=== PATIENT | male | born 1960 | race Caucasian/White ===

== ENCOUNTER 2022-02-20 04:21 | Outpatient (CLI) | payer MEDICAID, SELFPAY ==
[2022-02-20 09:39] LABS: Anion Gap 7.9 mmol/L (3-11); BUN 18 mg/dL (7-18); CO2 29.1 mmol/L (21.0-32.0); Calcium 8.5 mg/dL (8.5-10.1); Calculated LDL 173 mg/dL (<100); Chloride 106 mmol/L (98-107); Cholesterol 244 mg/dL (<200); Glucose 88 mg/dL (74-106); HDL Cholesterol 61 mg/dL (40-60); Potassium 4.2 mmol/L (3.5-5.1); Sodium 143 mmol/L (136-145); Triglyceride 52 mg/dL (<150)
== END 2022-02-20 04:22 | disposition home or self-care (01) ==
LOC: LBO 04:21
PROVIDERS: PCP Internal Medicine; Visit Provider Internal Medicine
DX: R73.01 Impaired fasting glucose (principal); E78.00 Pure hypercholesterolemia, unspecified
CPT/HCPCS: 36415; 80048; 80061

== ENCOUNTER 2022-09-16 02:58 | Outpatient (CLI) | payer MEDICAID, SELFPAY ==
[2022-09-16 07:33] LABS: Calculated LDL 185 mg/dL (<100); Cholesterol 243 mg/dL (<200); HDL Cholesterol 37 mg/dL (40-60); Triglyceride 109 mg/dL (<150)
== END 2022-09-16 02:59 | disposition home or self-care (01) ==
LOC: LBO 02:58
PROVIDERS: PCP Internal Medicine; Visit Provider Internal Medicine
DX: E78.00 Pure hypercholesterolemia, unspecified (principal)
CPT/HCPCS: 36415; 80061

== ENCOUNTER 2022-11-27 02:48 | Outpatient (CLI) | payer MEDICAID, SELFPAY ==
[2022-11-27 08:39] LABS: Anion Gap 7.4 mmol/L (3-11); BUN 20 mg/dL (7-18); CO2 31.6 mmol/L (21.0-32.0); CREATININE 1.1 mg/dL (0.70-1.30); Calcium 9.3 mg/dL (8.5-10.1); Calculated LDL 181 mg/dL (<100); Chloride 104 mmol/L (98-107); Cholesterol 252 mg/dL (<200); Glucose 101 mg/dL (74-106); HDL Cholesterol 54 mg/dL (40-60); Magnesium 1.9 mg/dL (1.8-2.4); Potassium 4.5 mmol/L (3.5-5.1); Sodium 143 mmol/L (136-145); Triglyceride 85 mg/dL (<150)
== END 2022-11-27 02:49 | disposition home or self-care (01) ==
PROVIDERS: Absent Provider Student in an Organized Health Care Education/Training Program; PCP Student in an Organized Health Care Education/Training Program; Referring Provider Student in an Organized Health Care Education/Training Program; Visit Provider Student in an Organized Health Care Education/Training Program
DX: E86.0 Dehydration (principal); Z91.89 Other specified personal risk factors, not elsewhere classified; N20.0 Calculus of kidney; Z13.220 Encounter for screening for lipoid disorders
CPT/HCPCS: 36415; 80048; 80061; 83735

== ENCOUNTER 2022-12-20 02:35 | Outpatient (CLI) | payer MEDICAID, SELFPAY ==
[2022-12-20 09:37] LABS: Hemoglobin A1C 5.5 % (<5.7)
[2022-12-20 09:58] LABS: TSH (W/Ref FT4) 2.46 uIU/mL (0.36-3.74)
[2022-12-22 11:04] LABS: Lipoprotein (a) 126 nmol/L (<75)
[2022-12-24 16:10] LABS: Apolipoprotein B, Serum 130 mg/dL; Beta VLDL Cholesterol Not Detected mg/dL (<15); Beta VLDL Triglycerides Not Detected mg/dL (<15); Cholesterol, Total, CDC 249 mg/dL; Chylomicron Cholesterol Not Detected; Chylomicron Triglycerides Not Detected; HDL Cholesterol, CDC 42 mg/dL (>=40); LDL Cholesterol 183 mg/dL; LDL Triglycerides 33 mg/dL (<=50); Lp(a) Cholesterol 17 mg/dL (<5); LpX Not detected; Triglycerides, CDC 60 mg/dL; VLDL Cholesterol 7 mg/dL (<30); VLDL Triglycerides 12 mg/dL (<120)
== END 2022-12-20 02:36 | disposition home or self-care (01) ==
LOC: LBO 02:35
PROVIDERS: PCP Student in an Organized Health Care Education/Training Program; Visit Provider Student in an Organized Health Care Education/Training Program
DX: R53.83 Other fatigue (principal); Z91.89 Other specified personal risk factors, not elsewhere classified; E78.00 Pure hypercholesterolemia, unspecified; E86.0 Dehydration; Z82.49 Family history of ischemic heart disease and other diseases of the circulatory system
CPT/HCPCS: 36415; 80061; 83695; 82172; 82664; 83036; 84443

== ENCOUNTER 2023-02-04 17:10 | Outpatient (REF) | payer MEDICAID, SELFPAY ==
--- NOTE | 2023-02-04 15:45 | PAPNONF_PTH ---
PATIENT: Kurtis Peace LOC: [facility] U#:[id number] AGE/SX: 62/M ROOM: RE02/04/[address]: Eldon Vuong MD : 1960 BED: DIS: 02/04/2023 SPEC #: [id number] RECD: 02/04/23 17:59 STATUS: CHEN REShruthi #: [id number] DANIEL: 02/04/23 15:[address]: Eldon Vuong DEPT: [facility] Cytology RECD BY: Laura Hoffmann ENTERED: 02/04/23 17:59 SP TYPE: JUAN C HILL DR: Moira Quispe DO Tissues: 1 - BODY FLUID CYTO-FINE NEEDLE ASPIRATE-[facility] Procedures: BODY FLUID CYTO-FINE NEEDLE ASPIRATE-[facility] Comments: [id number] (REFRIGERATED)
== END 2023-02-04 17:11 | disposition home or self-care (01) ==
LOC: LBN 17:10
PROVIDERS: PCP Student in an Organized Health Care Education/Training Program; Visit Provider Otolaryngology
DX: R22.1 Localized swelling, mass and lump, neck (principal); R89.6 Abnormal cytological findings in specimens from other organs, systems and tissues
CPT/HCPCS: 88104

== ENCOUNTER 2023-02-11 08:06 | Outpatient (REF) | payer MEDICAID, SELFPAY ==
--- NOTE | 2023-02-11 07:25 | LYM_PTH ---
PATIENT: Kurtis Peace LOC: [facility] U#:[id number] AGE/SX: 62/M ROOM: RE02/11/[address]: Eldon Vuong MD : 1960 BED: DIS: 02/11/2023 SPEC #: [id number] RECD: 02/11/23 12:39 STATUS: CHEN REQ #: [id number] DANIEL: 02/11/23 07:[address]: Eldon Vuong DEPT: Surgical Specimen RECD BY: Laura Hoffmann ENTERED: 02/11/23 12:41 SP TYPE: LYM OTHR DR: Moira Quispe DO Tissues: 1 - LYMPH NODE BIOPSY 2 - FLOW CYTOMETRY NODE/TISSUE Procedures: GROSS AND MICRO LEVEL 4 IMMUNOPEROXIDASE STAIN FLOW CYTOMETRY LYMPHOMA PNL Comments: [id number] (FLOW CYTOMETRY - [id number])
== END 2023-02-11 08:07 | disposition home or self-care (01) ==
LOC: LBN 08:06
PROVIDERS: PCP Student in an Organized Health Care Education/Training Program; Visit Provider Otolaryngology
DX: C91.10 Chronic lymphocytic leukemia of B-cell type not having achieved remission (principal); C83.01 Small cell B-cell lymphoma, lymph nodes of head, face, and neck
CPT/HCPCS: 88305; 88184; 88185; 88361

== ENCOUNTER 2023-07-30 13:11 | Outpatient (CLI) | payer MEDICAID, SELFPAY ==
[2023-07-30 12:55] LABS: Abs Immature Grans 0.06 10^3/uL (0.0-0.06); HCT 41.7 % (40.0-50.0); HGB 14.4 g/dL (13.5-17.5); MCH 29.9 pg (27.0-33.0); MCHC 34.5 % (32.0-36.0); MCV 87 fL (80-95); MPV 9.5 fL (8.0-11.0); RBC 4.81 10^6/uL (4.36-5.78); RDW 12.7 % (11.8-14.1); RDW-SD 40.3 fL; WBC 20.51 10^3/uL (4.4-10.8)
[2023-07-30 13:18] LABS: ALT 33 U/L (16-63); AST 31 U/L (15-37); Absolute Neutrophil Count 6.36 10^3/uL (1.2-6.7); Albumin 4.2 g/dL (3.4-5.0); Alkaline Phosphatase 65 U/L (46-116); Anion Gap 7.4 mmol/L (3-11); BUN 15 mg/dL (7-18); Bilirubin, Total 0.7 mg/dL (0.2-1.0); CO2 28.6 mmol/L (21.0-32.0); Calcium 9.5 mg/dL (8.5-10.1); Chloride 103 mmol/L (98-107); Glucose 111 mg/dL (74-106); LDH 177 U/L (85-227); Magnesium 2.2 mg/dL (1.8-2.4); Platelet Count 108 10^3/uL (130-400); Potassium 4.1 mmol/L (3.5-5.1); Sodium 139 mmol/L (136-145); Total Protein 6.3 g/dL (6.4-8.2)
[2023-07-30 13:19] LABS: Absolute Basophil Count 0.21 10^3/uL (0.0-0.2); Absolute Monocyte Count 1.85 10^3/uL (0.1-0.8); Atypical Lymphocytes % 4; Diff Comment Manual Differential; RBC Morphology Normal
[2023-07-31 08:55] LABS: IgA 78 mg/dL (85-499); IgG 410 mg/dL (610-1616); IgM 23 mg/dL (35-242)
[2023-07-31 10:36] LABS: Lyme Ab w Rflx to Lyme Confirm Negative (Negative)
== END 2023-07-30 13:12 | disposition home or self-care (01) ==
LOC: LBO 13:13
PROVIDERS: PCP Student in an Organized Health Care Education/Training Program; Visit Provider Internal Medicine Hematology & Oncology
DX: C91.10 Chronic lymphocytic leukemia of B-cell type not having achieved remission (principal)
CPT/HCPCS: 80048; 80053; 80061; 82784; 87798; 82172; 82664; 83615; 83735; 85025; 86618

== ENCOUNTER 2023-08-04 12:55 | Outpatient (CLI) | payer MEDICAID, SELFPAY ==
[2023-08-04 16:38] LABS: BUN 22 mg/dL (7-18); CREATININE 1.1 mg/dL (0.70-1.30); Calcium 9.4 mg/dL (8.5-10.1); Chloride 102 mmol/L (98-107); Glucose 91 mg/dL (74-106); Potassium 3.9 mmol/L (3.5-5.1); Sodium 138 mmol/L (136-145)
[2023-08-06 18:58] LABS: Anaplasma phagocytophilum Negative (Negative); B. miyamotoi PCR Negative (Negative); Babesia divergens/MO-1 Negative (Negative); Babesia duncani Negative (Negative); Babesia microti Negative (Negative); Ehrlichia chaffeensis Negative (Negative); Ehrlichia ewingii/canis Negative (Negative); Ehrlichia muris eauclairensis Negative (Negative)
== END 2023-08-04 12:56 | disposition home or self-care (01) ==
LOC: LBO 12:55
PROVIDERS: PCP Student in an Organized Health Care Education/Training Program; Visit Provider Student in an Organized Health Care Education/Training Program
DX: A08.39 Other viral enteritis (principal); C91.10 Chronic lymphocytic leukemia of B-cell type not having achieved remission; E86.0 Dehydration; R19.7 Diarrhea, unspecified; U07.1 COVID-19; Z91.89 Other specified personal risk factors, not elsewhere classified; W57.XXXA Bitten or stung by nonvenomous insect and other nonvenomous arthropods, initial encounter
CPT/HCPCS: 36415; 80048; 87798

== ENCOUNTER 2023-08-11 21:14 | Outpatient (CLI) | payer MEDICAID, SELFPAY ==
[2023-08-12 18:38] LABS: Lab Add On Test DONE
[2023-08-12 18:50] LABS: Anion Gap 7.4 mmol/L (3-11); BUN 16 mg/dL (7-18); CO2 30.6 mmol/L (21.0-32.0); CREATININE 1.1 mg/dL (0.70-1.30); Calcium 9.4 mg/dL (8.5-10.1); Chloride 104 mmol/L (98-107); Glucose 102 mg/dL (74-106); Magnesium 2.2 mg/dL (1.8-2.4); Sodium 142 mmol/L (136-145)
[2023-08-14 16:53] LABS: Apolipoprotein B, Serum 71 mg/dL; Beta VLDL Cholesterol Not Detected mg/dL (<15); Beta VLDL Triglycerides Not Detected mg/dL (<15); Cholesterol, Total, CDC 123 mg/dL; Chylomicron Cholesterol Not Detected; Chylomicron Triglycerides Not Detected; HDL Cholesterol, CDC 29 mg/dL (>=40); LDL Cholesterol 61 mg/dL; LDL Triglycerides 34 mg/dL (<=50); Lp(a) Cholesterol 9 mg/dL (<5); LpX Not detected; Triglycerides, CDC 128 mg/dL; VLDL Cholesterol 24 mg/dL (<30); VLDL Triglycerides 78 mg/dL (<120)
== END 2023-08-11 21:15 | disposition home or self-care (01) ==
LOC: LBO 21:16
PROVIDERS: PCP Student in an Organized Health Care Education/Training Program; Visit Provider Student in an Organized Health Care Education/Training Program
DX: E78.00 Pure hypercholesterolemia, unspecified (principal)
CPT/HCPCS: 80048; 80061; 87798; 82172; 82664; 83735; 86618

== ENCOUNTER 2023-08-15 22:14 | Outpatient (REF) | payer MEDICAID, SELFPAY ==
[2023-08-15 23:35] LABS: Campylobacter PCR Negative (Negative); Salmonella PCR Negative (Negative); Shiga Toxin PCR Negative (Negative); Shigella/Enteroinvasive Ecoli Negative (Negative)
== END 2023-08-15 22:15 | disposition home or self-care (01) ==
LOC: LBN 22:14
PROVIDERS: PCP Student in an Organized Health Care Education/Training Program; Visit Provider Student in an Organized Health Care Education/Training Program
DX: R19.7 Diarrhea, unspecified (principal)
CPT/HCPCS: 87329; 87505

== ENCOUNTER → 2023-10-20 02:04 | Outpatient (CLI) | payer MEDICAID, SELFPAY ==
--- NOTE | 2023-10-20 | DI.CT_ITS ---
Exam(s) CT NECK CHEST ABD PEL W EXAM: CT NECK CHEST ABD PEL W CLINICAL HISTORY: LYMPHOCYTIC LEUKEMIA C91.10 MONITOR TECHNIQUE: Imaging Protocol: Axial computed tomography images with coronal and sagittal reformatted images were created and reviewed CONTRAST MATERIAL: Intravenous: Omnipaque 350 Contrast volume:150 ml Oral: yes / COMPARISON: CT RENAL COLIC WO CONTRAST from 01/01/[address] NECK SOFT TISSUE W CONTRAST (GENERIC) from 03/21/[address] CHEST ABDOMEN PELVIS W CONTRAST (GENERIC) from 03/21/2023 FINDINGS: Neck: Parotids/submandibular/thyroid gland: Normal. Lymphadenopathy: Innumerable enlarged bilateral cervical lymph nodes in the anterior and posterior ch anges well as supraclavicular area. Difficult to individually measure lymph nodes, grossly stable in size. Carotids/Jugular: Mild plaque at the common carotid bulbs without significant stenosis. Soft tissues: The floor the mouth is unremarkable. The epiglottis and vocal cords are within normal limits. Bones: Advanced degenerative changes. Stable cystic areas in the C5 and C6 vertebral bodies. No fra cture. No lytic or blastic lesions. Chest: Tracheobronchial tree: Patent where visualized. Mediastinum and Ayesha: Stable mildly enlarged bilateral hilar and mediastinal lymph nodes. Pulmonary parenchyma: No consolidation or dominant measurable mass. Stable tiny left perifissural nod ule. Stable peripheral tiny right upper lobe nodule. Pleura: No effusion or pneumothorax. Heart/Aorta: Thoracic aorta non-dilated. The heart is mildly dilated. Mild coronary artery calcifica tions are seen. Pulmonary arteries: Not enlarged. Contrast bolus insufficient to exclude emboli. Bones: Advanced degenerative disc changes in the thoracic spine. No fracture. No lytic or blastic l esions. Soft tissues: Stable appearance of multiple bilateral mildly enlarged but abnormal axillary lymph nod es. ABDOMEN: Liver: Normal density. Stable cysts in the right lobe. Gallbladder and biliary tract: No radiodense calculus or dilation. Pancreas: Normal density, no abnormal calcifications or inflammatory process. Spleen: Enlarged, 17 cm in length. Unchanged from prior Kidneys: Normal size, contour and axis. No radiodense stones or obstructive uropathy. No suspicious m asses seen. Adrenal glands: No masses seen. Abdominal Aorta: Abdominal portion non-dilated. Lymph nodes: Stable size of portacaval lymph node measuring 6 cm transverse. Multiple enlarged para- aortic lymph nodes as well as mesenteric lymph nodes and bilateral iliac chain lymph nodes. Multiple bilateral enlarged inguinal lymph nodes, stable. PELVIS: Bladder: Symmetric distention, no gross wall thickening. Bowel: No obstruction or bowel wall thickening. Peritoneal cavity: No ascites, collection or mesenteric inflammatory response. Reproductive: Prostate not enlarged but contains calcifications. Vasectomy clips and Bones: Degenerative changes. L5 spondylolysis and mild L5-S1 spondylolisthesis. No destructive lesi ons. IMPRESSION: Stable adenopathy in the neck, chest, abdomen and pelvis. No new findings. RADIATION DOSE DELIVERED: 2,085.74mGy.cm Total DLP DATA REPOSITORY: All CT scans at this facility are submitted to the National Radiology Data Registry (NRDR) Dose Index Registry (DIR) with the [employer] (A[employer]). RADIATION OPTIMIZATION: All CT scans at this facility use at least one of these dose optimization te chniques: automated exposure control; mA and/or kV adjustment per patient size (includes targeted exa ms where dose is matched to clinical indication); or iterative reconstruction.
[2023-10-20] MEDS: Barium Sulfate 2% W/V-Berry Smoothie 450 ML BTL 900 ML PO (11:50)
[2023-10-20 12:18] LABS: HCT 39.5 % (40.0-50.0); HGB 13.4 g/dL (13.5-17.5); MCH 30.1 pg (27.0-33.0); MCHC 33.9 % (32.0-36.0); MCV 89 fL (80-95); MPV 9.1 fL (8.0-11.0); Nucleated RBC 0.1 % (0.0-0.3); RBC 4.45 10^6/uL (4.36-5.78); RDW 12.5 % (11.8-14.1); RDW-SD 40.4 fL
[2023-10-20 12:21] LABS: ALT 22 U/L (16-63); AST 26 U/L (15-37); Alkaline Phosphatase 57 U/L (46-116); Anion Gap 9.2 mmol/L (3-11); BUN 23 mg/dL (7-18); Bilirubin, Total 0.5 mg/dL (0.2-1.0); CO2 26.8 mmol/L (21.0-32.0); CREATININE 0.9 mg/dL (0.70-1.30); Calcium 8.7 mg/dL (8.5-10.1); Chloride 106 mmol/L (98-107); Estimated GFR 95.97 (mL/min/1.73m2); Glucose 99 mg/dL (74-106); LDH 207 U/L (85-227); Potassium 4.2 mmol/L (3.5-5.1); Sodium 142 mmol/L (136-145); Total Protein 6.3 g/dL (6.4-8.2)
[2023-10-20 12:30] LABS: WBC 28.04 10^3/uL (4.4-10.8)
[2023-10-20 12:36] LABS: Absolute Lymphocyte Count 24.39 10^3/uL (1.2-3.4); Absolute Monocyte Count 0.28 10^3/uL (0.1-0.8); Absolute Neutrophil Count 3.36 10^3/uL (1.2-6.7); Atypical Lymphocytes % 3; Diff Comment Manual Differential; Platelet Count 88 10^3/uL (130-400); RBC Morphology Normal
[2023-10-20] MEDS: Omnipaque 350 MG/ML 100 ML BTL IJ (14:02)
[2023-10-20] MEDS: Omnipaque 350 MG/ML 50 ML BTL IJ (14:03)
[2023-10-20] MEDS: Normal Saline - Diluent 50 ML VIAL IJ (14:04)
[2023-10-21 07:49] LABS: IgA 44 mg/dL (85-499); IgG 462 mg/dL (610-1616); IgM 15 mg/dL (35-242)
== END ==
PROVIDERS: Internal Medicine Hematology & Oncology; PCP Student in an Organized Health Care Education/Training Program; Visit Provider Nurse Practitioner Adult Health
DX: C91.10 Chronic lymphocytic leukemia of B-cell type not having achieved remission (principal)
CPT/HCPCS: 70491; 74177; 80053; 82784; 71260; 83615; 85025; J3490; Q9967

== ENCOUNTER 2023-12-04 14:10 | Outpatient (CLI) | payer MEDICAID, SELFPAY ==
[2023-12-04 11:11] LABS: HGB 14.5 g/dL (13.5-17.5); MCH 29.9 pg (27.0-33.0); MCHC 33.7 % (32.0-36.0); MCV 89 fL (80-95); MPV 9.6 fL (8.0-11.0); RBC 4.85 10^6/uL (4.36-5.78); RDW 12.5 % (11.8-14.1); RDW-SD 40.5 fL
[2023-12-04 11:24] LABS: WBC 27.47 10^3/uL (4.4-10.8)
[2023-12-04 11:26] LABS: Absolute Monocyte Count 0.55 10^3/uL (0.1-0.8); Absolute Neutrophil Count 3.02 10^3/uL (1.2-6.7); Atypical Lymphocytes % 4; Platelet Count 88 10^3/uL (130-400)
[2023-12-04 11:27] LABS: Diff Comment Manual Differential; RBC Morphology Normal
[2023-12-04 11:52] LABS: Calculated LDL 129 mg/dL (<100); Cholesterol 186 mg/dL (<200); HDL Cholesterol 44 mg/dL (40-60); Triglyceride 66 mg/dL (<150)
[2023-12-04 11:54] LABS: ALT 25 U/L (16-63); AST 27 U/L (15-37); Albumin 4.4 g/dL (3.4-5.0); Alkaline Phosphatase 63 U/L (46-116); Anion Gap 8.7 mmol/L (3-11); BUN 22 mg/dL (7-18); Bilirubin, Total 0.8 mg/dL (0.2-1.0); CO2 28.3 mmol/L (21.0-32.0); Calcium 9.3 mg/dL (8.5-10.1); Chloride 103 mmol/L (98-107); Estimated GFR 84.57 (mL/min/1.73m2); Glucose 89 mg/dL (74-106); LDH 180 U/L (85-227); Potassium 4.5 mmol/L (3.5-5.1); Sodium 140 mmol/L (136-145); Total Protein 6.8 g/dL (6.4-8.2)
[2023-12-05 09:31] LABS: IgA 45 mg/dL (85-499); IgG 519 mg/dL (610-1616); IgM <12 mg/dL (35-242)
[2023-12-08 16:41] LABS: Apolipoprotein B, Serum 97 mg/dL; Beta VLDL Cholesterol Not Detected mg/dL (<15); Beta VLDL Triglycerides Not Detected mg/dL (<15); Cholesterol, Total, CDC 178 mg/dL; Chylomicron Cholesterol Not Detected; Chylomicron Triglycerides Not Detected; HDL Cholesterol, CDC 40 mg/dL (>=40); LDL Cholesterol 110 mg/dL; LDL Triglycerides 33 mg/dL (<=50); Lp(a) Cholesterol 12 mg/dL (<5); LpX Not detected; Triglycerides, CDC 86 mg/dL; VLDL Cholesterol 16 mg/dL (<30); VLDL Triglycerides 33 mg/dL (<120)
== END 2023-12-04 14:11 | disposition home or self-care (01) ==
LOC: LBO 14:11
PROVIDERS: PCP Student in an Organized Health Care Education/Training Program; Visit Provider Internal Medicine Hematology & Oncology
DX: E78.00 Pure hypercholesterolemia, unspecified (principal); Z13.220 Encounter for screening for lipoid disorders; C91.10 Chronic lymphocytic leukemia of B-cell type not having achieved remission
CPT/HCPCS: 36415; 80053; 80061; 82784; 82172; 82664; 83615; 85025

== ENCOUNTER 2024-03-24 01:51 | Outpatient (CLI) | payer MEDICAID, SELFPAY ==
[2024-03-29 17:15] LABS: Apolipoprotein B, Serum 91 mg/dL; Beta VLDL Cholesterol Not Detected mg/dL (<15); Beta VLDL Triglycerides Not Detected mg/dL (<15); Cholesterol, Total, CDC 171 mg/dL; Chylomicron Cholesterol Not Detected; Chylomicron Triglycerides Not Detected; HDL Cholesterol, CDC 39 mg/dL (>=40); LDL Cholesterol 110 mg/dL; LDL Triglycerides 28 mg/dL (<=50); Lp(a) Cholesterol 11 mg/dL (<5); LpX Not detected; Triglycerides, CDC 65 mg/dL; VLDL Cholesterol 11 mg/dL (<30); VLDL Triglycerides 18 mg/dL (<120)
== END 2024-03-24 01:52 | disposition home or self-care (01) ==
PROVIDERS: PCP Student in an Organized Health Care Education/Training Program; Visit Provider Student in an Organized Health Care Education/Training Program
DX: E78.00 Pure hypercholesterolemia, unspecified (principal)
CPT/HCPCS: 36415; 80061; 82172; 82664

== ENCOUNTER 2024-05-19 02:26 | Outpatient (CLI) | payer MEDICAID, SELFPAY ==
[2024-05-19 08:18] LABS: HCT 44.1 % (40.0-50.0); HGB 14.7 g/dL (13.5-17.5); MCH 30.6 pg (27.0-33.0); MCHC 33.3 % (32.0-36.0); MCV 92 fL (80-95); MPV 9.8 fL (8.0-11.0); RDW 12.9 % (11.8-14.1); RDW-SD 43.6 fL
[2024-05-19 08:36] LABS: ALT 23 U/L (16-63); AST 34 U/L (15-37); Albumin 4.4 g/dL (3.4-5.0); Alkaline Phosphatase 68 U/L (46-116); Anion Gap 4.4 mmol/L (3-11); BUN 22 mg/dL (7-18); CO2 29.6 mmol/L (21.0-32.0); Calcium 9.4 mg/dL (8.5-10.1); Chloride 104 mmol/L (98-107); Estimated GFR 84.57 (mL/min/1.73m2); Glucose 97 mg/dL (74-106); LDH 205 U/L (85-227); Potassium 4.4 mmol/L (3.5-5.1); Sodium 138 mmol/L (136-145); Total Protein 6.8 g/dL (6.4-8.2)
[2024-05-19 09:52] LABS: Absolute Neutrophil Count 2.17 10^3/uL (1.2-6.7); Platelet Count 84 10^3/uL (130-400)
[2024-05-19 09:53] LABS: Absolute Eosinophil Count 0.36 10^3/uL (0.0-0.7); Absolute Lymphocyte Count 32.94 10^3/uL (1.2-3.4); Absolute Monocyte Count 0.72 10^3/uL (0.1-0.8); Atypical Lymphocytes % 7 %; Diff Comment Manual Differential; RBC Morphology Normal
[2024-05-20 10:48] LABS: IgA 37 mg/dL (85-499); IgG 430 mg/dL (610-1616); IgM 15 mg/dL (35-242)
== END 2024-05-19 02:27 | disposition home or self-care (01) ==
LOC: LBO 02:26
PROVIDERS: PCP Student in an Organized Health Care Education/Training Program; Visit Provider Nurse Practitioner Adult Health
DX: C91.10 Chronic lymphocytic leukemia of B-cell type not having achieved remission (principal); D80.1 Nonfamilial hypogammaglobulinemia
CPT/HCPCS: 36415; 80053; 82784; 83615; 85025

== ENCOUNTER 2024-11-02 00:52 | Outpatient (CLI) | payer MEDICAID, SELFPAY ==
[2024-11-02 13:25] LABS: HCT 43.3 % (40.0-50.0); HGB 14.4 g/dL (13.5-17.5); MCH 30.2 pg (27.0-33.0); MCHC 33.3 % (32.0-36.0); MCV 91 fL (80-95); MPV 9.8 fL (8.0-11.0); RBC 4.77 10^6/uL (4.36-5.78); RDW 12.7 % (11.8-14.1); RDW-SD 42.1 fL
[2024-11-02 13:41] LABS: Absolute Basophil Count 0.38 10^3/uL (0.0-0.2); Absolute Lymphocyte Count 30.91 10^3/uL (1.2-3.4); Absolute Monocyte Count 0.38 10^3/uL (0.1-0.8); Absolute Neutrophil Count 6.03 10^3/uL (1.2-6.7); Atypical Lymphocytes % 3 %; Platelet Count 81 10^3/uL (130-400)
[2024-11-02 13:42] LABS: ALT 28 U/L (16-63); AST 27 U/L (15-37); Albumin 4.2 g/dL (3.4-5.0); Alkaline Phosphatase 68 U/L (46-116); Anion Gap 5.2 mmol/L (3-11); BUN 22 mg/dL (7-18); Bilirubin, Total 0.95 mg/dL (0.2-1.0); CO2 32.8 mmol/L (21.0-32.0); CREATININE 1.1 mg/dL (0.70-1.30); Calcium 8.8 mg/dL (8.5-10.1); Chloride 103 mmol/L (98-107); Diff Comment Manual Differential; Estimated GFR 74.96 (mL/min/1.73m2); Glucose 106 mg/dL (74-106); LDH 239 U/L (85-227); Potassium 4.5 mmol/L (3.5-5.1); RBC Morphology Normal; Sodium 141 mmol/L (136-145); Total Protein 6.7 g/dL (6.4-8.2)
[2024-11-03 10:25] LABS: IgA 34 mg/dL (85-499); IgG 411 mg/dL (610-1616); IgM 15 mg/dL (35-242)
== END 2024-11-02 00:53 | disposition home or self-care (01) ==
PROVIDERS: PCP Student in an Organized Health Care Education/Training Program; Visit Provider Nurse Practitioner Adult Health
DX: C91.10 Chronic lymphocytic leukemia of B-cell type not having achieved remission (principal)
CPT/HCPCS: 36415; 80053; 82784; 83615; 85025

== ENCOUNTER 2024-11-24 03:28 | Outpatient (CLI) | payer MEDICAID, SELFPAY ==
[2024-11-24 13:03] LABS: Anion Gap 6.5 mmol/L (3-11); BUN 20 mg/dL (7-18); CO2 29.5 mmol/L (21.0-32.0); CREATININE 0.9 mg/dL (0.70-1.30); Calcium 9.3 mg/dL (8.5-10.1); Calculated LDL 112 mg/dL (<100); Chloride 106 mmol/L (98-107); Cholesterol 172 mg/dL (<200); Estimated GFR 95.37 (mL/min/1.73m2); Glucose 92 mg/dL (74-106); HDL Cholesterol 49 mg/dL (40-60); Potassium 4.5 mmol/L (3.5-5.1); Sodium 142 mmol/L (136-145); Triglyceride 55 mg/dL (<150)
== END 2024-11-24 03:29 | disposition home or self-care (01) ==
LOC: LBO 03:28
PROVIDERS: PCP Student in an Organized Health Care Education/Training Program; Visit Provider Student in an Organized Health Care Education/Training Program
DX: I10 Essential (primary) hypertension (principal); Z13.220 Encounter for screening for lipoid disorders
CPT/HCPCS: 36415; 80048; 80061

== ENCOUNTER 2025-03-25 06:03 | Day surgery (SDC) | payer MEDICAID, SELFPAY ==
--- NOTE | 2025-03-24 20:36 | W.PM.DSUDISC ---
Date of service: 03/25/25 Discharge Plan Disposition Patient Disposition: Home Condition: Good Discharge Details Reason For Visit: screening colonoscopy Attending Provider: Mitesh Beard Primary Care Provider: Krysta Ozuna Home Meds and New Rx's Prescriptions: Continued rosuvastatin 10 mg tablet 10 mg PO HS Rx Instructions: Continue Discontinued bisacodyl [Dulcolax (bisacodyl)] 5 mg tablet,delayed release (DR/EC) 5 mg PO ONCE Qty: 4 0RF Rx Instructions: Take per colonoscopy instructions provided by ordering providers office polyethylene glycol 3350 17 gram/dose powder 17 g PO ONCE Qty: 238 0RF Rx Instructions: Take per colonoscopy instructions provided by ordering providers office Discharge Instructions Instructions: Colon polyps, Diverticulosis Additional Instructions: Willie, was very nice to meet you today, and I hope you make a quick recovery after the colonoscopy. Things went very smoothly. I did find, and remove 1 tiny bit of tissue today. To be completely honest I am a little skeptical that this is actually a polyp, but I did remove it, and I will send it to pathology just to double check. If it turns out to be a polyp, then we will use that information to guide the timing of future colonoscopies. Those results will take about a week or so to get back, once my office has them, we will be in touch. Incidentally, you also have some diverticulosis. Diverticula are weak spots in the muscular layer of the colon wall that cause the inside layer known as the mucosa at the pocket approach outwards a bit. These little pockets are called diverticula, the condition of having them is known as diverticulosis. On some occasions these get inflamed and irritated, and patients typically experience sharp pain, usually in the left lower side of their abdomen. We refer to those flareups as diverticulitis. Hopefully, ears will never bother you. I will attach a little bit of information here about colon rectal polyps, as well as diverticulosis. If you need anything or have any questions at all, please do not hesitate to ask, otherwise we will be in touch once we have the results 1. If tolerated, consume a soft, low fiber diet for 1-2 days. 2[address] Do not drive, drink alcohol, operate machinery, make critical decisions, or do activities that require coordination or balance for 24 hours. 3. Because air was put into your colon during the procedure, expelling air from your rectum (passing gas or farting) is normal. 4. You may not have a bowel movement for 1-3 days because of the colonoscopy prep. This is normal. 5. Go directly to the emergency room if you notice any of the following: Develop chills (warm to touch), or if you have a thermometer and your temperature is above 101 Difficulty breathing or difficultly swallowing Persistent vomiting Severe abdominal pain, other than gas cramps Severe chest pain Black, tarry stools Any bleeding ? exceeding one tablespoon 6. Call your physician if the site where your intravenous was started becomes red, swollen, painful, and warm to touch. 7. Your physician has reviewed your pre-procedure medications. Please continue to take those medications as previously ordered. You will be given specific information/education regarding any changes to your medications before leaving. Activity:: Activity as Tolerated Diet:: As Tolerated Discharge Orders Discharge Orders: Discharge Order (Routine); Ordered 03/24/25 Ordered By: Mitesh Beard DS: Diagnosis Discharge Diagnosis (1) Encounter for screening colonoscopy: Status: Acute Asessment and Plan: Follow-up on polypectomy results
--- NOTE | 2025-03-24 20:38 | W.COLOREPORT ---
Date of service: 03/25/25 Time of Service: 08:01 Colonoscopy Report Date of procedure: 03/25/25 Pre-op diagnosis general: screening colonoscopy Post-op diagnosis procedure note: other (Colon polyp diverticulosis) Procedure: colonoscopy with polypectomy Surgeon: Mitesh Beard Anesthesia Type: General:No Airway Estimated blood loss (mL): 5 Pathology: other (0.25 cm polyp at 100 cm) Complications: None Disposition: same day Indications: Willie is a 64 year old man who needs a screening colonoscopy Prep: Miralax/Dulcolax Procedure Start Time: 07:37 Procedure End Time: 07:53 Retraction Time: 8 Findings: 0.25 cm polyp at 100 cm, diverticulosis Procedure Description: After the induction of anesthesia, and with the patient in left lateral decubitus position, I began by performing an external anorectal exam.? Perineum and skin were normal, as was the anal verge.? There was no evidence of external hemorrhoids.? Next, I performed a digital rectal exam.? I did not appreciate any abnormal findings.? Next, I advanced a colonoscope into the rectal vault.? I performed retroflexion.? This was normal.? Using insufflation, I then advanced the colonoscope beyond the rectal folds and into the sigmoid colon before advancing towards the cecum.? The quality of the prep was outstanding.? The scope was noted to be in the cecum by identification of the ileocecal valve and appendiceal orifice.? I then began withdrawing the colonoscope using repeated irrigation as necessary for full evaluation of the colonic mucosa. Around 100 cm from the anal verge is a 0.25 cm polyp. Narrowband imaging was used to assist with the analysis here. Generally, it actually appeared more consistent with benign lymphoid aggregate, but some features of mucosa did appear polypoid. Therefore, using cold forceps, this was removed without issues. There were a few scattered diverticula on the right side, in the transverse colon. A few more diverticula were seen within the sigmoid segment. Once the scope was withdrawn to the level of the rectum, great care was taken to examine portions of the rectal folds.? Finally, the scope was withdrawn and the patient was brought to the same-day surgery recovery unit as the anesthetic wore off. ?The findings and instructions were shared with the patient prior to discharge. [place] Bowel Prep [place] Bowel Prep Right Colon: 3 Left Colon: 3 Transverse Colon: 3 Total Score: 9
[2025-03-25 06:14] VITALS: BP 112/81; PULSE 59; RESP 17; TEMP 36.6; O2SAT 99
--- NOTE | 2025-03-25 06:27 | ANES.PREOP_ITS ---
General Info Date of Service Date Performed: 03/25/25 Height: 5 ft 6 in Weight: 77 kg Body Mass Index (BMI): 27.3 Surgical Procedure: Operation Date: 03/25/25 07:35 Proposed Procedure Side Surgeon p Colonoscopy Mitesh Beard MD Meds Allergies and Home Medications Allergies Allergy/AdvReac Type Severity Reaction Status Date / Time acetaminophen (From Percocet) Allergy Intermediate Skin Rash Verified 03/25/25 06:20 hydrocodone (Hydrocodone) Allergy Intermediate SKIN RASH Verified 03/25/25 06:20 oxycodone HCl (From Percocet) Allergy Intermediate Skin Rash Verified 03/25/25 06:20 morphine Allergy Skin Rash Verified 03/25/25 06:20 hydrocodone bitartrate (From AdvReac rash Verified 03/25/25 06:20 Vicodin) Home Medication ?Medication ?Instructions ?Recorded rosuvastatin 10 mg tablet 10 mg PO HS 03/24/25 Current Visit Medications: Current Medications Generic Name Dose Route Start Last Admin Trade Name Freq PRN Reason Stop Dose Admin Ringer's Solution 1,000 mls @ 80 mls/hr 03/25/25 06:00 IV 03/25/25 23:59 INFUSION DELMY IV Miscellaneous Supplies 1 each 03/25/25 06:00 Iv Access IV 03/25/25 23:59 DIRECTED DELMY Ondansetron HCl 4 mg 03/24/25 20:39 Ondansetron 4 Mg/2 Ml Vial IVP 04/23/25 20:38 Q4H PRN PRN Nausea / Vomiting Sodium Chloride 0 ml 03/25/25 06:00 Normal Saline Flush 10 Ml Syr IV 03/25/25 23:59 PRN PRN Sodium Chloride 0 ml 03/25/25 06:00 Normal Saline 10 Ml Vial IJ 03/25/25 23:59 DIRECTED PRN Sterile Water 0 ml 03/25/25 06:00 Water,Injection,Sterile 10 Ml Vial IJ 03/25/25 23:59 DIRECTED PRN PFSH Active Problems Active Problems: Problem Status Onset Code Preventative health care Acute Z00.00 Encounter for screening colonoscopy Acute Z12.11 Actinic keratosis Acute ~07/01/24 L57.0 Splenomegaly Acute R16.1 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 Chronic lymphocytic leukemia not having achieved remission Chronic C91.10 Diarrhea Acute R19.7 Arthralgia Acute M25.50 COVID Acute ~06/17/23 U07.1 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 states it has since resolved History of basal cell carcinoma (BCC) 03/01/22 Dr Wallace Actinic keratoses (12/20/14) 03/01/22 Dr Wallace for f/u on Actinic Keratosis Treatment, F/U in November 2022 Rash and other nonspecific skin eruption rash on both shins that popped up this winter, reports it looks better currently than it has. Seborrheic keratoses Kidney stone Surgical History Surgical History (Updated 03/25/25 @ 06:21 by Vidhya Bernard RN) History of right cataract surgery History of tonsillectomy and adenoidectomy History of bladder surgery (~2009) tumor cysto w/stent placement (01/02/16) Done at [facility] Vasectomy Tobacco Smoking/Tobacco Use Status: Never Passive smoking exposure: No (for 18 years living at home) Alcohol Alcohol Intake: former Substance Use Substance use: Never Substance use type: does not use Vital Signs and Lab Results Vital Signs Most Recent Vital Signs in EMR: Most Recent Vital Signs Temp Pulse Resp BP Pulse Ox 36.6 C 59 L 17 112/81 99 03/25/25 06:14 03/25/25 06:14 03/25/25 06:14 03/25/25 06:14 03/25/25 06:14 Anesthesia Assessment and Plan Anesthesia History Personal History: No History of Anesthesia Complications Family History: No Family History of Anesthesia Complications Exercise Tolerance Exercise Tolerance: Metabolic Equivalents>4 Pertinent Negatives Pertinent Negatives: No Symptoms of GERD, No Major Cardiovascular Symptoms or Complaints and No Major Pulmonary Symptoms or Complaints Cardiac & Pulmonary Exam Cardiac Exam: Normal S1/S2 Heart Sounds Pulmonary Exam: Clear Bilateral Breath Sounds Implantable Cardiac Device Does patient have a Pacemaker or an ICD?: No Airway Exam Known Difficult Airway: No Mallampati Class: 2 Mouth Opening: Normal (> 3cm) Thyromental Distance: Greater than 3 cm Neck Range of Motion: Full ROM Neck Circumference: Normal Teeth Condition: Normal Dentition ASA Classification ASA Score: ASA 2 Emergency Case?: No NPO Status NPO Status: NPO Clears >2 hours, Solids >8 hours Anesthesia Plan Resuscitation Status: Full Code Anesthesia Technique: General Anesthesia Airway Planned: Natural Airway Monitors Used: Standard Monitors Preoperative Comments:: 64 y/o male with history of splenomegaly, chronic lymphocytic leukemia (11/24/24 last seen by heme/onc no indications for tx at this time), diarrhea and kidney stones presents for colonoscopy screening. His last screening was in 2011,, which was remarkable for hyperplastic polyps.
[2025-03-25] MEDS: Lactated Ringers 1,000 ML 80 ML IV (06:29)
[2025-03-25 07:22] VITALS: BMI 27.3
--- NOTE | 2025-03-25 07:48 | BOWEL_PTH ---
PATIENT: Kurtis Peace LOC: [facility] U#:[id number] AGE/SX: 64/M ROOM: RE03/25/[address]: Mitesh Beard MD : 1960 BED: DIS: 03/25/2025 SPEC #: [id number] RECD: 03/25/25 12:35 STATUS: CHEN REQ #: [id number] DANIEL: 03/25/25 07:[address]: Mitesh Beard DEPT: Surgical Specimen RECD BY: Laura Hoffmann ENTERED: 03/25/25 12:41 SP TYPE: Bowel OTHR DR: Krysta Ozuna APRN Tissues: 1 - BIOPSY BOWEL Procedures: GROSS AND MICRO LEVEL 4 Comments: [id number]
[2025-03-25 07:58] VITALS: BP 105/76; PULSE 67; RESP 18; TEMP 36.9; O2SAT 96
--- NOTE | 2025-03-25 08:06 | W.ANESPOSTOP ---
Postoperative Evaluation Date, Time and Location Date Performed: 03/25/25 Time Performed: 08:08 Patient Location: Day Surgery Unit Vital Signs Most Recent Imported Vital Signs: Most Recent Vital Signs Temp Pulse Resp BP Pulse Ox 36.9 C 67 18 105/76 96 03/25/25 07:58 03/25/25 07:58 03/25/25 07:58 03/25/25 07:58 03/25/25 07:58 Pain Score Most Recent Pain Score: Most Recent Pain Score Pain Level 0 03/25/25 06:14 Assessment Mental Status: Awake (Alert & Oriented to Patient Baseline) Airway and Respiratory Function: Patent airway with normal (patient baseline) respiratory exam Cardiovascular Function: Hemodynamically Stable Hydration Status: Adequately Hydrated Nausea & Vomiting: No Nausea or Vomiting Pain: Pt. Denies Any Pain Peripheral Nerve Block: Patient did not receive a nerve block
[2025-03-25 08:23] VITALS: BP 114/80; PULSE 56; RESP 20; TEMP 36.8; O2SAT 95
== END 2025-03-25 08:34 | disposition home or self-care (01) ==
LOC: SUR 06:03
PROVIDERS: PCP Nurse Practitioner Family; Visit Provider Surgery
PROC: 0DJD8ZZ Inspection of Lower Intestinal Tract, Via Natural or Artificial Opening Endoscopic (ICD-10-PCS; CPT 45378; principal; 2025-03-25 07:30)
DX: Z12.11 Encounter for screening for malignant neoplasm of colon (principal); K57.30 Diverticulosis of large intestine without perforation or abscess without bleeding; K63.5 Polyp of colon
CPT/HCPCS: 45380; 88305; J2704

== ENCOUNTER 2025-05-13 00:51 | Outpatient (CLI) | payer MEDICAID, SELFPAY ==
[2025-05-13 11:34] LABS: HCT 39.5 % (40.0-50.0); HGB 13.2 g/dL (13.5-17.5); MCH 29.9 pg (27.0-33.0); MCHC 33.4 % (32.0-36.0); MCV 90 fL (80-95); MPV 9.8 fL (8.0-11.0); RBC 4.41 10^6/uL (4.36-5.78); RDW 12.8 % (11.8-14.1); RDW-SD 41.9 fL
[2025-05-13 11:50] LABS: Platelet Count 60 10^3/uL (130-400); RBC Morphology Normal
[2025-05-13 11:52] LABS: ALT 25 U/L (16-63); AST 27 U/L (15-37); Albumin 4.3 g/dL (3.4-5.0); Alkaline Phosphatase 54 U/L (46-116); Anion Gap 6.6 mmol/L (3-11); BUN 27 mg/dL (7-18); Bilirubin, Total 0.9 mg/dL (0.2-1.0); CO2 29.4 mmol/L (21.0-32.0); Calcium 9.0 mg/dL (8.5-10.1); Chloride 105 mmol/L (98-107); Estimated GFR 98.83 (mL/min/1.73m2); Glucose 86 mg/dL (74-106); LDH 210 U/L (85-227); Potassium 4.4 mmol/L (3.5-5.1); Sodium 141 mmol/L (136-145); Total Protein 6.3 g/dL (6.4-8.2)
[2025-05-13 11:56] LABS: WBC 31.66 10^3/uL (4.4-10.8)
== END 2025-05-13 00:52 | disposition home or self-care (01) ==
PROVIDERS: PCP Nurse Practitioner Family; Visit Provider Internal Medicine Hematology & Oncology
DX: C91.10 Chronic lymphocytic leukemia of B-cell type not having achieved remission (principal)
CPT/HCPCS: 36415; 80053; 82784; 83615; 85025

== ENCOUNTER 2025-07-14 05:23 | Outpatient (CLI) | payer MEDICAID, SELFPAY ==
[2025-07-14 07:47] LABS: Hemoglobin A1C 5.5 % (<5.7)
[2025-07-14 08:29] LABS: Calculated LDL 126 mg/dL (<100); Cholesterol 177 mg/dL (<200); HDL Cholesterol 40 mg/dL (>or=40); Triglyceride 59 mg/dL (<150)
[2025-07-14 17:36] LABS: PSA, Screening 0.6 ng/mL (<=4.5)
== END 2025-07-14 05:24 | disposition home or self-care (01) ==
LOC: LBO 05:23
PROVIDERS: PCP Nurse Practitioner Family; Referring Provider Nurse Practitioner Family; Visit Provider Nurse Practitioner Family
DX: Z00.00 Encounter for general adult medical examination without abnormal findings (principal); Z12.5 Encounter for screening for malignant neoplasm of prostate
CPT/HCPCS: 36415; 80061; 84153; 83036

== ENCOUNTER 2025-08-22 03:47 | Outpatient (CLI) | payer MEDICAID, SELFPAY ==
[2025-08-22 07:21] LABS: Abs Immature Grans 0.08 10^3/uL (0.0-0.06); HCT 41.0 % (40.0-50.0); HGB 13.6 g/dL (13.5-17.5); Immature Grans % 0.2 %; MCH 29.4 pg (27.0-33.0); MCHC 33.2 % (32.0-36.0); MCV 89 fL (80-95); MPV 9.2 fL (8.0-11.0); RBC 4.63 10^6/uL (4.36-5.78); RDW 12.9 % (11.8-14.1); RDW-SD 41.4 fL
[2025-08-22 08:03] LABS: WBC 40.77 10^3/uL (4.4-10.8)
[2025-08-22 08:04] LABS: Platelet Count 62 10^3/uL (130-400); RBC Morphology Normal
[2025-08-22 08:19] LABS: LDH 211 U/L (120-246)
[2025-08-22 08:20] LABS: ALT 12 U/L (10-49); AST 27 U/L (<34); Albumin 4.4 g/dL (3.4-5.0); Alkaline Phosphatase 67 U/L (46-116); Anion Gap 5.4 mmol/L (3-11); BUN 22 mg/dL (9-23); Bilirubin, Total 0.70 mg/dL (0.2-1.2); CO2 31.6 mmol/L (20.0-31.0); Calcium 9.1 mg/dL (8.3-10.6); Chloride 104 mmol/L (98-107); Glucose 93 mg/dL (74-106); Potassium 4.8 mmol/L (3.5-5.1); Sodium 141 mmol/L (136-145); Total Protein 6.2 g/dL (5.7-8.2)
== END 2025-08-22 03:48 | disposition home or self-care (01) ==
LOC: LBO 03:47
PROVIDERS: PCP Nurse Practitioner Family; Visit Provider Internal Medicine Hematology & Oncology
DX: C91.10 Chronic lymphocytic leukemia of B-cell type not having achieved remission (principal)
CPT/HCPCS: 36415; 80053; 82784; 83615; 85025

== ENCOUNTER 2025-09-20 07:07 | Outpatient (CLI) | payer MEDICAID, SELFPAY | END 2025-09-20 07:08 | disposition home or self-care (01) | LOC: LBO 07:07 | PROVIDERS: PCP Nurse Practitioner Family; Visit Provider Internal Medicine Interventional Cardiology | DX: E78.5 Hyperlipidemia, unspecified (principal) | CPT/HCPCS: 36415; 83695 ==